=== PATIENT | female | born 1960 | race Two or more races ===

== ENCOUNTER 2024-01-11 17:12 | Inpatient (IN) | payer OTHER ==
[~2024-01-11] VITALS: Ht 154.9 cm; Wt 56.3 kg
[2024-01-11 17:55] LABS: BASOPHILS % (AUTO) 1.1 % (0.0-2.0); EOSINOPHILS # (AUTO) 0.1 K/uL (0.0-0.7); EOSINOPHILS % (AUTO) 1.9 % (0.0-7.0); LYMPHOCYTES # (AUTO) 0.9 K/uL (0.8-4.8); MEAN CORPUSCULAR HEMOGLOBIN 27.5 uug (24.7-32.8); MEAN CORPUSCULAR HGB CONC 33 g/dL (32.3-35.6); MEAN CORPUSCULAR VOLUME 84.2 fL (75.5-95.3); MONOCYTES # (AUTO) 0.2 K/uL (0.1-1.30); MONOCYTES % (AUTO) 5.9 % (0.0-11.0); NEUTROPHILS # (AUTO) 2.7 K/uL (1.8-8.9); NEUTROPHILS % (AUTO) 69.1 % (38.5-71.5); PLATELET COUNT (AUTO) 207 K/uL (179-408); WHITE BLOOD COUNT (AUTO) 3.9 K/uL (3.8-11.8)
[2024-01-11 18:05] LABS: RED BLOOD CELL COUNT(AUTO) 2.39 MIL/uL (3.63-4.92)
[2024-01-11 18:07] LABS: DIFFERENTIAL COMMENT 1; HEMATOCRIT 20.1 % (31.2-41.9); HEMOGLOBIN 6.6 g/dL (10.9-14.3)
[2024-01-11 18:09] LABS: BASOPHILS % (MANUAL) 0 % (0-2); EOSINOPHILS % (MANUAL) 1 % (0-8); LYMPHOCYTES % (MANUAL) 25 % (20-40); MONOCYTES % (MANUAL) 4 % (2-10); NEUTROPHILS % (MANUAL) 70 % (42-75)
[2024-01-11 18:12] LABS: CALCIUM 7.4 mg/dL (8.5-10.1); CARBON DIOXIDE 20 mmol/L (21-32); CHLORIDE 108 mmol/L (98-107); CREATININE 5.1 mg/dL (0.6-1.3); GLUCOSE 112 mg/dL (74-106); POTASSIUM 5.5 mmol/L (3.5-5.1); SODIUM SERUM 139 mmol/L (136-145); UREA NITROGEN, BLOOD 57 mg/dL (7-18)
[2024-01-11 18:24] LABS: ALANINE AMINOTRANSFERASE 12 U/L (14-59); ALBUMIN 1.6 g/dL (3.4-5.0); ALKALINE PHOSPHATASE 83 U/L (50-136); ASPARTATE AMINOTRANSFERASE 20 U/L (15-37); BILIRUBIN,DIRECT 0.2 mg/dL (0.0-0.2); BILIRUBIN,TOTAL 0.3 mg/dL (0.2-1.0); NT-PRO BNP 116524 pg/mL (0-125); TOTAL PROTEIN, SERUM 5.8 g/dL (6.4-8.2)
[2024-01-11] MEDS: FUROSEMIDE 40 MG/4 ML VIAL IV ONE (18:37)
[2024-01-11] MEDS ORDERED: LABETALOL HCL 100 MG/20 ML VIAL ONE (20:25)
[2024-01-11] MEDS ORDERED: CLONIDINE HCL 0.2 MG TABLET ONE (20:25)
[2024-01-11] MEDS: CLONIDINE HCL 0.1 MG TABLET PO ONE (20:30)
[2024-01-11] MEDS: LABETALOL HCL 100 MG/20 ML VIAL IV ONE (20:35)
[2024-01-11] MEDS ORDERED: HYDROCODONE/APAP 5-325MG TABLET PO PRN (21:00)
[2024-01-11 21:18] VITALS: BP 173/81; TEMP 98.5
[2024-01-11] MEDS: DOCUSATE SODIUM 250 MG CAPSULE PO SCH (22:29)
[2024-01-11] MEDS: ALBUMIN HUMAN 25% 100 ML IV ONE (22:29)
[2024-01-11] MEDS ORDERED: FURO40TA5 PO (23:05)
[2024-01-11] MEDS ORDERED: METO2.5T2 PO (23:05)
[2024-01-11] MEDS: IV 1/2NS 1000 ML 1,000 ML IV PRN (23:38)
[2024-01-12] VITALS (11 sets, daily range): BP systolic 133–171; BP diastolic 73–85; TEMP 97.6–98; O2SAT 96–100
[2024-01-12] MEDS: ACETAMINOPHEN 325 MG TABLET PO PRN (03:40)
[2024-01-12] MEDS: hydrALAZINE HCL 20 MG/1 ML VIAL IV PRN (04:27)
[2024-01-12] MEDS: PANTOPRAZOLE SODIUM 40 MG TABLET.DR PO SCH (06:27)
[2024-01-12] MEDS: ALBUTEROL SULFATE 2.5 MG/ 0.5 ML NEBU NEB PRN (07:41)
[2024-01-12 07:48] LABS: EOSINOPHILS # (AUTO) 0.1 K/uL (0.0-0.7); LYMPHOCYTES # (AUTO) 1.1 K/uL (0.8-4.8); NEUTROPHILS # (AUTO) 2.4 K/uL (1.8-8.9)
[2024-01-12 07:50] LABS: BASOPHILS % (AUTO) 0.8 % (0.0-2.0); EOSINOPHILS % (AUTO) 1.4 % (0.0-7.0); LYMPHOCYTES % (AUTO) 28.7 % (20.5-51.5); MEAN CORPUSCULAR HEMOGLOBIN 28.2 uug (24.7-32.8); MEAN CORPUSCULAR HGB CONC 33 g/dL (32.3-35.6); MEAN CORPUSCULAR VOLUME 84.6 fL (75.5-95.3); MONOCYTES # (AUTO) 0.2 K/uL (0.1-1.30); MONOCYTES % (AUTO) 6.3 % (0.0-11.0); NEUTROPHILS % (AUTO) 62.8 % (38.5-71.5); PLATELET COUNT (AUTO) 183 K/uL (179-408); RED CELL DISTRIBUTION WIDTH 18.2 % (12.3-17.7); WHITE BLOOD COUNT (AUTO) 3.9 K/uL (3.8-11.8)
[2024-01-12 07:56] LABS: DIFFERENTIAL COMMENT 1; RED BLOOD CELL COUNT(AUTO) 2.18 MIL/uL (3.63-4.92)
[2024-01-12 07:58] LABS: HEMATOCRIT 18.5 % (31.2-41.9); HEMOGLOBIN 6.2 g/dL (10.9-14.3)
[2024-01-12 08:19] LABS: ALBUMIN 2.1 g/dL (3.4-5.0); BILIRUBIN,TOTAL 0.4 mg/dL (0.2-1.0); CALCIUM 7.5 mg/dL (8.5-10.1); CREATININE 5.1 mg/dL (0.6-1.3); MAGNESIUM 3.5 mg/dL (1.8-2.4); PHOSPHOROUS 5.6 mg/dL (2.5-4.9); POTASSIUM 5.2 mmol/L (3.5-5.1); TOTAL PROTEIN, SERUM 5.7 g/dL (6.4-8.2)
[2024-01-12] MEDS: ASPIRIN EC 81 MG TABLET.DR PO SCH (08:53)
[2024-01-12] MEDS: FUROSEMIDE 40 MG/4 ML VIAL IV SCH (09:44)
[2024-01-12 10:52] LABS: EOSINOPHILS % (MANUAL) 1 % (0-8); LYMPHOCYTES % (MANUAL) 27 % (20-40); MONOCYTES % (MANUAL) 2 % (2-10); NEUTROPHILS % (MANUAL) 70 % (42-75); PLATELET ESTIMATE ADEQUATE
[2024-01-12] MEDS ORDERED: LATA2.5D15 EACHEYE (11:20)
[2024-01-12] MEDS ORDERED: FAMO-132 PO (11:20)
[2024-01-12 13:39] LABS: *OCCULT BLOOD STOOL NEGATIVE (NEGATIVE)
[2024-01-12] MEDS ORDERED: NITROGLYCERIN 0.1 MG/HR (=4 CM2) PATCH TD SCH (17:00)
[2024-01-12 17:53] LABS: ABG BASE EXCESS -5.6 mmol/L (-2.0-3.0); ABG HCO3 18.6 mmol/L (21.0-28.0); ABG PCO2 30.8 mmHg (32.0-45.0); ABG PH 7.399 (7.350-7.450); ABG PO2 72.3 mmHg (83.0-108.0); ABG SITE RIGHT RADIAL; ABG TOTAL HEMOGLOBIN 6.8 G/dL (12.0-16.0); AaDO2 94.8 mmHg; COHb 0.2 % (0.5-1.5); MetHb 0.4 % (0.0-1.5)
[2024-01-12] MEDS: FUROSEMIDE 40 MG/4 ML VIAL IV ONE (18:10)
[2024-01-12] MEDS: DOCUSATE SODIUM 100 MG CAPSULE PO SCH (20:13)
[2024-01-12] MEDS: LATANOPROST OPHT DROP 2.5 ML BOTTLE OP SCH (20:14)
[2024-01-12] MEDS: NITROGLYCERIN 0.1 MG/HR (=4 CM2) PATCH TD SCH (20:15)
[2024-01-12 23:43] LABS: *BILIRUBIN,URIN NEGATIVE (NEGATIVE); *BLOOD, URINE 1+ (NEGATIVE); *CLARITY,URINE CLEAR (CLEAR); *COLOR,URINE YELLOW (YELLOW); *KETONES,URINE NEGATIVE (NEGATIVE); *UROBILINOGEN,URINE 0.2 E.U./dl (NORMAL); LEUKOCYTE ESTERASE ,URINE NEGATIVE (NEGATIVE); NITRITE, URINE NEGATIVE (NEGATIVE); PH,URINE 6.5 (5.0-8.0); UGLUCOSE TRACE (NEGATIVE)
[2024-01-12 23:45] LABS: *CREATININE,URINE 41.2 mg/dL (30-125); *URINE TOTAL PROTEIN RANDOM 655.4 mg/dL (<150/24HR)
[2024-01-12 23:46] LABS: *PROTEIN,URINE 3+ (NEGATIVE)
[2024-01-13] VITALS (13 sets, daily range): BP systolic 144–175; BP diastolic 69–82; TEMP 97.2–98.7; O2SAT 95–100
[2024-01-13 00:06] LABS: BACTERIA,URINE FEW /HPF (NONE SEEN); SQUAMOUS EPITHELIAL CELL,UR FEW /HPF (NONE SEEN); WBC,URINE NONE SEEN /HPF (0-3)
[2024-01-13] MEDS: hydrALAZINE HCL 20 MG/1 ML VIAL IV PRN (00:23)
[2024-01-13] MEDS: PANTOPRAZOLE SODIUM 40 MG TABLET.DR PO SCH (06:05)
[2024-01-13 07:51] LABS: EOSINOPHILS # (AUTO) 0.1 K/uL (0.0-0.7); MONOCYTES # (AUTO) 0.3 K/uL (0.1-1.30); NEUTROPHILS # (AUTO) 3.8 K/uL (1.8-8.9); PLATELET COUNT (AUTO) 210 K/uL (179-408); RED CELL DISTRIBUTION WIDTH 18.7 % (12.3-17.7); WHITE BLOOD COUNT (AUTO) 5.2 K/uL (3.8-11.8)
[2024-01-13 07:54] LABS: BASOPHILS % (AUTO) 0.7 % (0.0-2.0); LYMPHOCYTES % (AUTO) 19.3 % (20.5-51.5); MEAN CORPUSCULAR HEMOGLOBIN 28.1 uug (24.7-32.8); MEAN CORPUSCULAR HGB CONC 33 g/dL (32.3-35.6); MEAN CORPUSCULAR VOLUME 84.2 fL (75.5-95.3); MONOCYTES % (AUTO) 5.9 % (0.0-11.0); NEUTROPHILS % (AUTO) 73.1 % (38.5-71.5)
[2024-01-13 08:01] LABS: BILIRUBIN,TOTAL 0.5 mg/dL (0.2-1.0); CALCIUM 7.8 mg/dL (8.5-10.1); CREATININE 5.1 mg/dL (0.6-1.3); MAGNESIUM 3.5 mg/dL (1.8-2.4); PHOSPHOROUS 6.4 mg/dL (2.5-4.9); POTASSIUM 4.9 mmol/L (3.5-5.1); TOTAL PROTEIN, SERUM 5.9 g/dL (6.4-8.2)
[2024-01-13 08:15] LABS: DIFFERENTIAL COMMENT 1; HEMOGLOBIN 6.4 g/dL (10.9-14.3); RED BLOOD CELL COUNT(AUTO) 2.26 MIL/uL (3.63-4.92)
[2024-01-13] MEDS: METOLAZONE 2.5 MG TABLET PO ONE ×2 (09:20→10:57)
[2024-01-13] MEDS: FUROSEMIDE 40 MG/4 ML VIAL IV SCH (09:21)
[2024-01-13] MEDS: ONDANSETRON 4 MG/2 ML VIAL IV PRN (10:53)
[2024-01-13 19:34] LABS: LYMPHOCYTES % (MANUAL) 16 % (20-40); MONOCYTES % (MANUAL) 6 % (2-10); NEUTROPHILS % (MANUAL) 78 % (42-75); PLATELET ESTIMATE ADEQUATE
[2024-01-13 19:35] LABS: ANISOCYTOSIS 1+; OVALOCYTES OCC
[2024-01-14] VITALS (21 sets, daily range): BP systolic 118–165; BP diastolic 63–89; TEMP 98–98.5; O2SAT 97–100
[2024-01-14 08:06] LABS: COMPLEMENT, C3 SERUM 90 mg/dL (82-167); COMPLEMENT, C4 SERUM 24 mg/dL (12-38); HEPATITIS B SURFACE AB, QUAL Non Reactive (.); HEPATITIS B SURFACE AG Negative (Negative); HEPATITIS C VIRUS ANTIBODY Non Reactive (Non Reactive); PTH, INTACT 49 pg/mL (15-65)
[2024-01-14 08:55] LABS: BASOPHILS # (AUTO) 0.2 K/UL (0.0-0.2); EOSINOPHILS % (AUTO) 0.8 % (0.0-7.0); LYMPHOCYTES # (AUTO) 0.6 K/uL (0.8-4.8); LYMPHOCYTES % (AUTO) 10.1 % (20.5-51.5); MEAN CORPUSCULAR HEMOGLOBIN 27.6 uug (24.7-32.8); MEAN CORPUSCULAR HGB CONC 33 g/dL (32.3-35.6); MEAN CORPUSCULAR VOLUME 83.9 fL (75.5-95.3); MONOCYTES # (AUTO) 0.3 K/uL (0.1-1.30); MONOCYTES % (AUTO) 5.3 % (0.0-11.0); NEUTROPHILS # (AUTO) 4.9 K/uL (1.8-8.9); NEUTROPHILS % (AUTO) 80.8 % (38.5-71.5); PLATELET COUNT (AUTO) 235 K/uL (179-408); RED CELL DISTRIBUTION WIDTH 18.5 % (12.3-17.7)
[2024-01-14 09:03] LABS: CALCIUM 7.7 mg/dL (8.5-10.1); CREATININE 5.4 mg/dL (0.6-1.3); MAGNESIUM 3.1 mg/dL (1.8-2.4); PHOSPHOROUS 7.2 mg/dL (2.5-4.9); POTASSIUM 4.7 mmol/L (3.5-5.1)
[2024-01-14 09:23] LABS: ERYTHROCYTE SEDIMENTATION RATE 21 MM/HR (0-20)
[2024-01-14 09:26] LABS: DIFFERENTIAL COMMENT 1; RED BLOOD CELL COUNT(AUTO) 2.37 MIL/uL (3.63-4.92)
[2024-01-14 09:27] LABS: HEMOGLOBIN 6.5 g/dL (10.9-14.3)
[2024-01-14 09:28] LABS: HEMATOCRIT 19.9 % (31.2-41.9)
[2024-01-14 10:07] LABS: *ANTI-SCLERODERMA-70 AB <0.2 AI (0.0-0.9); *RNP ANTIBODIES 3.1 AI (0.0-0.9); *SJOGREN'S ANTI-SS-A <0.2 AI (0.0-0.9); *SJOGREN'S ANTI-SS-B <0.2 AI (0.0-0.9); *SMITH ANTIBODIES <0.2 AI (0.0-0.9); A/G RATIO 0.7 (0.7-1.7); ALBUMIN 2.3 g/dL (2.9-4.4); ALPHA-1-GLOBULIN 0.2 g/dL (0.0-0.4); ALPHA-2-GLOBULIN 0.6 g/dL (0.4-1.0); ANTI-DNA(DS) AB, QN 14 IU/mL (0-9); ANTI-NUCLEAR AB DIRECT Positive (Negative); BETA GLOBULIN 1.7 g/dL (0.7-1.3); GAMMA GLOBULIN 0.6 g/dL (0.4-1.8); GLOBULIN, TOTAL 3.2 g/dL (2.2-3.9); M-SPIKE 1.1 g/dL (Not Observed)
[2024-01-14 10:14] LABS: PROTEIN, BODY FLUID 0.8 G/DL
[2024-01-14 10:20] LABS: ABG BASE EXCESS -6.4 mmol/L (-2.0-3.0); ABG HCO3 18.7 mmol/L (21.0-28.0); ABG PCO2 35.7 mmHg (32.0-45.0); ABG PH 7.337 (7.350-7.450); ABG PO2 200.4 mmHg (83.0-108.0); ABG SITE LEFT RADIAL; ABG TOTAL HEMOGLOBIN 10.7 G/dL (12.0-16.0); AaDO2 99.3 mmHg; MetHb 0.4 % (0.0-1.5)
[2024-01-14] MEDS ORDERED: ENSURE WITH FIBER 237 ML LIQUID (CHOCOLATE) PO SCH (14:15)
[2024-01-14] MEDS: ENSURE ENLIVE (VAN) 240 ML LIQUID PO SCH (14:30)
[2024-01-14 14:41] LABS: PLATELET ESTIMATE ADEQUATE
[2024-01-14 14:45] LABS: LYMPHOCYTES % (MANUAL) 12 % (20-40); MONOCYTES % (MANUAL) 5 % (2-10); NEUTROPHILS % (MANUAL) 83 % (42-75)
[2024-01-14 14:56] LABS: ERYTHROCYTE SEDIMENTATION RATE 28 MM/HR (0-20)
[2024-01-14 15:02] LABS: WBC, BODY FLUID 131 /cu. mm (0-200/cu.mm)
[2024-01-14 15:04] LABS: TOTAL VOLUME,BODY FLUID 1050 mL
[2024-01-14 15:30] LABS: MONOCYTES,BODY FLUID 30 %; POLYNUCLEAR, BODY FLUID 22 % (0-25 %)
[2024-01-14] MEDS: NEPRO (VANILLA) 237 ML CAN PO SCH (15:45)
[2024-01-15] VITALS (20 sets, daily range): BP systolic 115–155; BP diastolic 56–87; TEMP 97.6–98; O2SAT 95–100
[2024-01-15 04:41] LABS: EOSINOPHILS # (AUTO) 0.1 K/uL (0.0-0.7); LYMPHOCYTES # (AUTO) 0.9 K/uL (0.8-4.8); LYMPHOCYTES % (AUTO) 13.9 % (20.5-51.5); MONOCYTES # (AUTO) 0.4 K/uL (0.1-1.30)
[2024-01-15 04:42] LABS: BASOPHILS % (AUTO) 0.6 % (0.0-2.0); EOSINOPHILS % (AUTO) 1.2 % (0.0-7.0); MEAN CORPUSCULAR HGB CONC 33 g/dL (32.3-35.6); MONOCYTES % (AUTO) 5.4 % (0.0-11.0); NEUTROPHILS # (AUTO) 5.2 K/uL (1.8-8.9); NEUTROPHILS % (AUTO) 78.9 % (38.5-71.5); PLATELET COUNT (AUTO) 267 K/uL (179-408); RED CELL DISTRIBUTION WIDTH 18.3 % (12.3-17.7); WHITE BLOOD COUNT (AUTO) 6.6 K/uL (3.8-11.8)
[2024-01-15 04:43] LABS: RED BLOOD CELL COUNT(AUTO) 2.46 MIL/uL (3.63-4.92)
[2024-01-15 04:44] LABS: DIFFERENTIAL COMMENT 1
[2024-01-15 04:45] LABS: HEMATOCRIT 20.7 % (31.2-41.9); HEMOGLOBIN 6.9 g/dL (10.9-14.3)
[2024-01-15 04:50] LABS: CALCIUM 7.9 mg/dL (8.5-10.1); CREATININE 5.5 mg/dL (0.6-1.3); MAGNESIUM 3.3 mg/dL (1.8-2.4); PHOSPHOROUS 7.6 mg/dL (2.5-4.9); POTASSIUM 4.5 mmol/L (3.5-5.1)
[2024-01-15 06:37] LABS: LYMPHOCYTES % (MANUAL) 9 % (20-40); MONOCYTES % (MANUAL) 3 % (2-10); NEUTROPHILS % (MANUAL) 88 % (42-75); PLATELET ESTIMATE ADEQUATE
[2024-01-16] VITALS (35 sets, daily range): BP systolic 124–169; BP diastolic 60–81; TEMP 97–98.7; O2SAT 96–100
[2024-01-16 04:36] LABS: BASOPHILS % (AUTO) 0.6 % (0.0-2.0); EOSINOPHILS # (AUTO) 0.1 K/uL (0.0-0.7); MONOCYTES # (AUTO) 0.4 K/uL (0.1-1.30)
[2024-01-16 04:39] LABS: EOSINOPHILS % (AUTO) 2.4 % (0.0-7.0); LYMPHOCYTES # (AUTO) 1.1 K/uL (0.8-4.8); LYMPHOCYTES % (AUTO) 24.9 % (20.5-51.5); MEAN CORPUSCULAR HEMOGLOBIN 27.6 uug (24.7-32.8); MEAN CORPUSCULAR HGB CONC 33 g/dL (32.3-35.6); MEAN CORPUSCULAR VOLUME 83.8 fL (75.5-95.3); MONOCYTES % (AUTO) 7.8 % (0.0-11.0); NEUTROPHILS # (AUTO) 2.9 K/uL (1.8-8.9); NEUTROPHILS % (AUTO) 64.3 % (38.5-71.5); PLATELET COUNT (AUTO) 243 K/uL (179-408); RED CELL DISTRIBUTION WIDTH 17.9 % (12.3-17.7); WHITE BLOOD COUNT (AUTO) 4.5 K/uL (3.8-11.8)
[2024-01-16 05:14] LABS: DIFFERENTIAL COMMENT 1
[2024-01-16 05:21] LABS: HEMATOCRIT 18.4 % (31.2-41.9); HEMOGLOBIN 6.1 g/dL (10.9-14.3)
[2024-01-16 05:33] LABS: CALCIUM 7.6 mg/dL (8.5-10.1); CREATININE 5.8 mg/dL (0.6-1.3); MAGNESIUM 3.3 mg/dL (1.8-2.4); PHOSPHOROUS 7.2 mg/dL (2.5-4.9); POTASSIUM 4.5 mmol/L (3.5-5.1)
[2024-01-16 13:49] LABS: BAND % (MANUAL) 2 % (0-10); EOSINOPHILS % (MANUAL) 2 % (0-8); LYMPHOCYTES % (MANUAL) 22 % (20-40); MONOCYTES % (MANUAL) 7 % (2-10); NEUTROPHILS % (MANUAL) 67 % (42-75)
[2024-01-16 13:50] LABS: ANISOCYTOSIS 1+; PLATELET ESTIMATE ADEQUATE
[2024-01-17] VITALS (17 sets, daily range): BP systolic 123–163; BP diastolic 61–79; TEMP 97–97.9; O2SAT 95–100
[2024-01-17 07:01] LABS: CALCIUM 7.5 mg/dL (8.5-10.1); CREATININE 5.6 mg/dL (0.6-1.3); MAGNESIUM 3.1 mg/dL (1.8-2.4); PHOSPHOROUS 6.6 mg/dL (2.5-4.9)
[2024-01-17 07:08] LABS: BASOPHILS % (AUTO) 0.6 % (0.0-2.0); EOSINOPHILS # (AUTO) 0.1 K/uL (0.0-0.7); HEMOGLOBIN 8.2 g/dL (10.9-14.3); LYMPHOCYTES % (AUTO) 23.2 % (20.5-51.5); MEAN CORPUSCULAR HEMOGLOBIN 28.4 uug (24.7-32.8); MEAN CORPUSCULAR HGB CONC 34 g/dL (32.3-35.6); MEAN CORPUSCULAR VOLUME 82.8 fL (75.5-95.3); MONOCYTES # (AUTO) 0.4 K/uL (0.1-1.30); MONOCYTES % (AUTO) 8.5 % (0.0-11.0); NEUTROPHILS # (AUTO) 2.8 K/uL (1.8-8.9); NEUTROPHILS % (AUTO) 64.7 % (38.5-71.5); PLATELET COUNT (AUTO) 278 K/uL (179-408); RED BLOOD CELL COUNT(AUTO) 2.91 MIL/uL (3.63-4.92); RED CELL DISTRIBUTION WIDTH 17.1 % (12.3-17.7); WHITE BLOOD COUNT (AUTO) 4.4 K/uL (3.8-11.8)
[2024-01-17 07:11] LABS: DIFFERENTIAL COMMENT 1
[2024-01-18] VITALS (8 sets, daily range): BP systolic 147–172; BP diastolic 74–87; TEMP 97.7–98.5; O2SAT 92–96
[2024-01-18] MEDS: CLONIDINE HCL 0.1 MG TABLET PO ONE (19:05)
[2024-01-19 06:12] VITALS: TEMP 98.8
[2024-01-19 07:57] VITALS: BP 158/74; TEMP 98.9; O2SAT 97
[2024-01-19] MEDS: AMLODIPINE 10 MG TABLET PO SCH (09:55)
[2024-01-19 11:20] VITALS: BP 146/70; TEMP 98.2; O2SAT 97
[2024-01-19] MEDS ORDERED: AMLO10TA4 PO (19:44)
== END 2024-01-19 14:00 | disposition left against medical advice (07) | DRG 469 ==
LOC: ER 17:13 → TELE3 19:36 → CCU 01-13 21:10 → MEDSURG3 01-17 20:30 → TELE3 01-17 20:41 → MEDSURG3 01-18 10:45 → TELE3 01-18 15:14
PROVIDERS: ADMIT Internal Medicine; ATTEND Nurse Practitioner Acute Care
PROC: 0W9B3ZZ Drainage of Left Pleural Cavity, Percutaneous Approach (ICD-10-PCS; principal; 2024-01-13)
PROC: 30233N1 Transfusion of Nonautologous Red Blood Cells into Peripheral Vein, Percutaneous Approach (ICD-10-PCS; 2024-01-16)
DX: N17.9 Acute kidney failure, unspecified (principal); J96.01 Acute respiratory failure with hypoxia; I21.A1 Myocardial infarction type 2; E43 Unspecified severe protein-calorie malnutrition; D63.1 Anemia in chronic kidney disease; E88.09 Other disorders of plasma-protein metabolism, not elsewhere classified; E87.70 Fluid overload, unspecified; E44.0 Moderate protein-calorie malnutrition; I27.20 Pulmonary hypertension, unspecified; E11.22 Type 2 diabetes mellitus with diabetic chronic kidney disease; J91.8 Pleural effusion in other conditions classified elsewhere; I12.9 Hypertensive chronic kidney disease with stage 1 through stage 4 chronic kidney disease, or unspecified chronic kidney disease; N18.9 Chronic kidney disease, unspecified; E11.65 Type 2 diabetes mellitus with hyperglycemia; Z68.23 Body mass index [BMI] 23.0-23.9, adult; Z88.5 Allergy status to narcotic agent; Z53.29 Procedure and treatment not carried out because of patient's decision for other reasons; R76.8 Other specified abnormal immunological findings in serum; I25.2 Old myocardial infarction
CPT/HCPCS: 32555; 36415; 36600; 70030-TC; 71045; 71250; 76770; 82803; 83550; 83615; 83735; 83970; 83986; 84100; 84155; 84165; 84300; 84443; 84484; 85025; 85651; 85730; 86038; 86160; 86706; 86803; 86850; 86870; 86900; 86901; 86920; 87340; 93005; 93307; 94640; 94760; A4606; A4663; G0378; J0360; J1940; J2405; J3490; P9016; P9047